=== PATIENT | female | born 2000 | race Caucasian/White ===

== ENCOUNTER 2022-09-13 17:39 | Emergency (ER) | payer OTHER ==
[2022-09-13 17:45] VITALS: BP 130/60
--- NOTE | 2022-09-13 18:57 | ED Physician Documentation ---
PD HPI SKIN - Stated complaint Stated Complaint: R FINGER LAC - Chief complaint Chief Complaint: Laceration - History obtained from History obtained from: Patient - Additional information Additional information: PT comes to the ED for CC of laceration to R ring finger after cutting it with a knife. She states it was bleeding a lot and is right next to the nail, but isn't sure how badly she was cut. No movement deficits. Tetanus within past 10 years. No other injuries. PD PAST MEDICAL HISTORY - Allergies Allergies/Adverse Reactions: Allergies Allergy/AdvReac Type Severity Reaction Status Date / Time No Known Drug Allergies Allergy Verified 09/13/22 17:42 PD ED PE NORMAL - Vitals Vital signs reviewed: Yes - General General: Alert and oriented X 3, No acute distress, Well developed/nourished - HEENT HEENT: Atraumatic, PERRL, EOMI, Moist mucous membranes - Neck Neck: Supple, no meningeal sign - Cardiac Cardiac: Strong equal pulses - Respiratory Respiratory: No respiratory distress - Derm Derm: Normal color, Warm and dry, No rash, Other (1 cm superficial lac to R ring finger, adjacent to lateral aspect of nail, but not involving nail or bed. No FB. Bleeding controlled.) - Extremities Extremities: No deformity, Other (Full ROM R ring finger at all joints, to resistance.) - Neuro Neuro: Alert and oriented X 3 - Psych Psych: Normal mood, Normal affect Results - Vitals Vitals: Vital Signs - 24 hr 09/13/22 17:42 Temperature 36.5 C Heart Rate 80 Respiratory 16 Rate Blood Pressure 130/60 O2 Saturation 100 Oxygen O2 Source Room air Procedures - Laceration (location) R ring finger Length in cm: 1 Wound type: Linear, Superficial, Clean Neurovascular status: Sensory intact, Motor intact, Vascular intact Tendon involvement: Tendon intact Wound preparation: Hibiclens, Irrigated copiously NS, Wound explored, To the base Skin layer closure: Dermabond, Steri strips Other: Patient tolerated well, No complications, Neurovascular intact, Dressing applied, Tetanus UTD PD Medical Decision Making - ED course Complexity details: considered differential, d/w patient ED course: Wound repaired as above. Wound care at home discussed. Given return precautions. Departure - Departure Disposition: 01 Home, Self Care Clinical Impression: Laceration Condition: Stable Instructions: ED Laceration Ext Skin Glue Comments: Your wound has been repaired with skin glue today. It will wear off on its own over the next several days, as well the Steri-Strips that is been placed over it. If you wish to place another strep, you may certainly do so until the wound has more solidly scabbed over. Please avoid getting the finger wet or dirty as long as the Steri-Strip is in place, to increase the longevity of both the glue and the strep. Once the Steri-Strip and glue fall off of the wound is beginning to heal, you may use the finger as you see fit. Discharge Date/Time: 09/13/22 19:09
== END 2022-09-13 19:09 | disposition home or self-care (01) ==
LOC: ED 17:39
DX: S61.214A Laceration without foreign body of right ring finger without damage to nail, initial encounter (principal); W26.0XXA Contact with knife, initial encounter
CPT/HCPCS: 12001; 99281